=== PATIENT | female | born 1980 | race Caucasian/White ===

== ENCOUNTER 2016-06-14 06:15 | Emergency (ER) | payer OTHER ==
[~2016-06-14] VITALS: Ht 154.9 cm; Wt 85.7 kg
[~2016-06-14 06:15] MED LIST: PHEN-329 PO; SULF1TAB12 PO
[2016-06-14 06:25] VITALS: BP 108/66
--- NOTE | 2016-06-14 06:35 | NUR ---
Mandi larkin in EDM - 06/14/16 at 0715 by CHRISTI ATTEMPTED TO CATH PT WITH UNSUCESSFULL RESULTS, D/T UNABLE TO OBTAIN URINE FROM PT. WILL TRY AGAIN LATER.
--- NOTE | 2016-06-14 06:36 | NUR ---
PT TAKEN TO BED 3
--- NOTE | 2016-06-14 07:05 | NUR ---
Dr. Roberts evaluating patient at bedside.
--- NOTE | 2016-06-14 07:22 | NUR ---
Pt report given to BLANE GALINDO. Transfer of care at this time.PT LAURA, CHERIS.
[2016-06-14 07:39] VITALS: BP 100/68
== END 2016-06-14 07:39 | disposition home or self-care (01) ==
LOC: MED 06:15
DX: N39.0 Urinary tract infection, site not specified (principal); Z32.02 Encounter for pregnancy test, result negative
CPT/HCPCS: 81002; 81025; 99283

== ENCOUNTER 2017-03-23 04:12 | Emergency (ER) | payer OTHER ==
[~2017-03-23] VITALS: Ht 154.9 cm; Wt 84.4 kg
[2017-03-23 04:20] VITALS: BP 120/71
--- NOTE | 2017-03-23 04:25 | NUR ---
RETURNED BACK TO [facility] AMBULATORY ,IN STABLE CONDITION , A/W FOR BED, ERMD NOTED
--- NOTE | 2017-03-23 06:06 | NUR ---
Patient ambulated to bed 10. RN evaluating patient at bedside.
--- NOTE | 2017-03-23 06:15 | NUR ---
PATIENT PRESENTS TO ED WITH C/O PAINFUL URINATION AND ABDOMINAL PAIN X3 DAYS . AAOX4 WITH EVEN AND STEADY GAIT; LUNGS CLEAR BL; HR EVEN AND REGULAR; PT DENIES ANY FEVER, CP, SOB, OR COUGH AT THIS TIME; DENIES N/V/D; SKIN IS PINK/WARM/DRY; PATIENT STATES PAIN OF 8/10 AT THIS TIME; VSS; PATIENT POSITIONED FOR COMFORT; HOB ELEVATED; BEDRAILS UP X2; BED DOWN. ER MD MADE AWARE OF PT STATUS.
[2017-03-23] MEDS: KETOROLAC 60 MG/2 ML VIAL IM ONE (06:45)
[2017-03-23 06:53] VITALS: BP 116/72
--- NOTE | 2017-03-23 06:53 | NUR ---
Patient discharged with v/s stable. Written and verbal after care instructions given and explained. Patient alert, oriented and verbalized understanding of instructions. Ambulatory with steady gait. All questions addressed prior to discharge. ID band removed. Patient advised to follow up with PMD. Rx of CIPRO, PYRIDIUM, MOTRIN given. Patient educated on indication of medication including possible reaction and side effects. Opportunity to ask questions provided and answered.
== END 2017-03-23 06:53 | disposition home or self-care (01) ==
LOC: MED 04:12
DX: N39.0 Urinary tract infection, site not specified (principal); Z88.5 Allergy status to narcotic agent; Z88.8 Allergy status to other drugs, medicaments and biological substances; Z79.899 Other long term (current) drug therapy; Z90.49 Acquired absence of other specified parts of digestive tract
CPT/HCPCS: 81002; 81025; 96372; 99283; J1885

== ENCOUNTER 2017-05-06 03:00 | Emergency (ER) | payer OTHER ==
[~2017-05-06] VITALS: Ht 154.9 cm; Wt 84.1 kg
[2017-05-06 03:09] VITALS: BP 113/83
--- NOTE | 2017-05-06 03:16 | NUR ---
37Y F BIB SELF WITH DAUGHTER C/O SORETHROAT AND BILAT EAR PAIN X 3 DAYS. PT DENIES ANY N/V/D, SOB, CP AT THE MOMENT BUT DID STATES SHE HAS SWALLLOWING DIFFICULTY WITH FOOD BUT NOT WITH FLUIDS. PT AAOX4. BREATHING IS UNLABORED AND EVEN. PT AMBULATED WITH STEADY GAIT TO ER BED 2
--- NOTE | 2017-05-06 03:19 | NUR ---
Patient being evaluated by physician at bedside.
[2017-05-06] MEDS ORDERED: IBUPROFEN 800 MG TAB PO ONE (03:25)
--- NOTE | 2017-05-06 03:39 | NUR ---
STREP SWAB COMPLETED BROUGHT TO LAB GIVEN TO NIR
--- NOTE | 2017-05-06 03:59 | NUR ---
Patient discharged with v/s stable. Written and verbal after care instructions given and explained. Patient alert, oriented and verbalized understanding of instructions. Ambulatory with steady gait. All questions addressed prior to discharge. ID band removed. Patient advised to follow up with PMD. Rx of AMOX 500MG AND PHENERGAN DM given. Patient educated on indication of medication including possible reaction and side effects. Opportunity to ask questions provided and answered.
[2017-05-06 04:00] VITALS: BP 122/79
== END 2017-05-06 04:00 | disposition home or self-care (01) ==
LOC: MED 03:00
DX: J02.8 Acute pharyngitis due to other specified organisms (principal); B96.89 Other specified bacterial agents as the cause of diseases classified elsewhere; Z79.899 Other long term (current) drug therapy; Z88.5 Allergy status to narcotic agent; Z88.8 Allergy status to other drugs, medicaments and biological substances
CPT/HCPCS: 87081; 99283

== ENCOUNTER 2017-05-23 07:30 | Emergency (ER) | payer OTHER ==
[~2017-05-23] VITALS: Ht 154.9 cm; Wt 84.4 kg
[2017-05-23 07:42] VITALS: BP 132/78
--- NOTE | 2017-05-23 07:50 | NUR ---
PT AMBULATES TO BED 11 AFTER PROVIDING URINE SAMPLE
--- NOTE | 2017-05-23 07:53 | NUR ---
37f bib self with c/o 10/10 sharp intermittent bl lower abd/suprapubic pain, increased frequency, dysuria, and chill x 2 wks, progressively getting worse. Pt denies any n/v/d or fevers. Pt is aox4 with steady gait. RR are even and unlabored. Skin warm/pink/dry. No acute distress. Awaiting er md hou. All needs met at this time. Will continue to monitor.
[2017-05-23] MEDS ORDERED: KETOROLAC 60 MG/2 ML VIAL IM ONE (08:00)
--- NOTE | 2017-05-23 08:24 | NUR ---
Patient discharged with v/s stable. Written and verbal after care instructions given and explained. Patient alert, oriented and verbalized understanding of instructions. Ambulatory with steady gait. All questions addressed prior to discharge. ID band removed. Patient advised to follow up with PMD. Rx of Cipro nad Pyridium given. Patient educated on indication of medication including possible reaction and side effects. Opportunity to ask questions provided and answered.
[2017-05-23 08:25] VITALS: BP 128/70
== END 2017-05-23 08:24 | disposition home or self-care (01) ==
LOC: MED 07:30
DX: N39.0 Urinary tract infection, site not specified (principal); R51 Headache; Z90.49 Acquired absence of other specified parts of digestive tract; Z79.899 Other long term (current) drug therapy; Z88.5 Allergy status to narcotic agent; Z88.8 Allergy status to other drugs, medicaments and biological substances
CPT/HCPCS: 81002; 81025; 96372; 99283; J1885

== ENCOUNTER 2018-04-29 07:59 | Emergency (ER) | payer OTHER ==
[~2018-04-29] VITALS: Ht 154.9 cm; Wt 80.7 kg
--- NOTE | 2018-04-29 08:06 | NUR ---
PT AMBULATES TO BED 8
[2018-04-29 08:09] VITALS: BP 142/83
--- NOTE | 2018-04-29 08:15 | NUR ---
C/O HACKING COUGH, NASAL/CHEST CONGESTION, FATIGUE, AND HEADACHE X 1 MONTH FULL CLEAR SPEECH, WITH NO ACCESSORY MUSCLE USE NOTED AT THIS TIME HX--MIGRAINE RX--BOTOX, Amitriptyline, TOPAMAX, GABAPENTIN, Sumatriptan
[2018-04-29 08:40] VITALS: BP 142/83
--- NOTE | 2018-04-29 08:40 | NUR ---
Patient discharged with v/s stable. Written and verbal after care instructions given and explained. Patient alert, oriented and verbalized understanding of instructions. Ambulatory with steady gait. All questions addressed prior to discharge. ID band removed. Patient advised to follow up with PMD. Rx of Naprosyn, Claritin, Tessalon given. Patient educated on indication of medication including possible reaction and side effects. Opportunity to ask questions provided and answered.
== END 2018-04-29 08:40 | disposition home or self-care (01) ==
LOC: MED 07:59
DX: B34.9 Viral infection, unspecified (principal); J32.0 Chronic maxillary sinusitis; R03.0 Elevated blood-pressure reading, without diagnosis of hypertension; G43.909 Migraine, unspecified, not intractable, without status migrainosus; Z88.5 Allergy status to narcotic agent; Z79.899 Other long term (current) drug therapy; Z90.49 Acquired absence of other specified parts of digestive tract; Z88.1 Allergy status to other antibiotic agents
CPT/HCPCS: 99283

== ENCOUNTER 2018-06-15 23:59 | Inpatient (IN) | payer OTHER ==
[~2018-06-15] VITALS: Ht 154.9 cm; Wt 80.7 kg
[2018-06-16 00:19] VITALS: BP 134/79
[2018-06-16 00:39] LABS: HEMATOCRIT 32.5 % (36-48); HEMOGLOBIN 10.4 g/dL (12.0-16.0); MEAN CORPUSCULAR HEMOGLOBIN 24 pg (27-31); MEAN CORPUSCULAR HGB CONC 32 g/dL (33-37); MEAN CORPUSCULAR VOLUME 75.2 fL (80-94); PLATELET COUNT (AUTO) 363 K/uL (140-450); RED BLOOD CELL COUNT(AUTO) 4.32 MIL/uL (4.20-5.40); RED CELL DISTRIBUTION WIDTH 16.9 % (11.6-13.7); WHITE BLOOD COUNT (AUTO) 14.2 K/uL (4.8-10.8)
[2018-06-16 00:53] LABS: ANION GAP 15.9 (8-16); CARBON DIOXIDE 22.6 mmol/L (21-32); CREATININE 1.4 mg/dL (0.6-1.3); LYMPHOCYTES % (MANUAL) 3 % (20-46); POTASSIUM 3.5 mmol/L (3.5-5.1)
[2018-06-16 00:54] LABS: BASOPHILS % (MANUAL) 0 % (0-2); EOSINOPHILS % (MANUAL) 0 % (0-4); MONOCYTES % (MANUAL) 1 % (5-12)
[2018-06-16 00:58] LABS: ALBUMIN 3.8 g/dL (3.4-5.0); TOTAL BILIRUBIN 0.7 mg/dL (0.0-1.0)
--- NOTE | 2018-06-16 01:07 | NUR ---
PT AMBULATED TO BED 8
[2018-06-16] MEDS ORDERED: NACL 0.9% 1,000 ML IV ONE (01:25)
[2018-06-16] MEDS ORDERED: ONDANSETRON 4 MG/2 ML VIAL IVP ONE (01:25)
--- NOTE | 2018-06-16 01:42 | NUR ---
PT TO ED WITH C/O ABD PAIN TO EPIGASTRIC REGION. PT REPORTS N/V. ABD IS SOFT NON TENDER. DENIES PAIN UPON PALPATION. BOWEL SOUNDS PRESENT TO ALL QUADRANTS. PT MEDICATED AT HOME WITH BENTYL WITH NO RELIEF. PT PLACED INTO BED, CHANEL BERKOWITZ. PMH--MIGRAINES, TUBAL LIGATION ALLERGY--CODEINE, NITROFURANTOIN
[2018-06-16] MEDS ORDERED: KETOROLAC 30 MG/ML VIAL IVP ONE (02:00)
--- NOTE | 2018-06-16 02:00 | NUR ---
PT C/O PAIN AT THIS TIME. ER MD ORDAZ AWARE, ORDERS FOR MEDICATION IN EMAR.
[2018-06-16 03:13] LABS: BILIRUBIN,URINE NEGATIVE (NEGATIVE); BLOOD, URINE TRACE-L (NEGATIVE); COLOR,URINE YELLOW (YELLOW); LEUKOCYTE ESTERASE ,URINE 2+ (NEGATIVE); NITRITE, URINE NEGATIVE (NEGATIVE); PH,URINE 6.5 (5.0-9.0); UGLUCOSE NEGATIVE (NEGATIVE)
[2018-06-16 03:18] LABS: APPEARANCE,URINE SLIGHTLY CLOUDY (CLEAR)
[2018-06-16] MEDS ORDERED: cefTRIAXone 1,000 MG VIAL ONE (03:19)
[2018-06-16 03:20] VITALS: BP 106/62
[2018-06-16] MEDS ORDERED: MORPHINE SULFATE 2 MG/ML SYR IVP PRN (03:20)
[2018-06-16] MEDS ORDERED: IMI25 PO (03:20)
[2018-06-16] MEDS ORDERED: ELA50 PO (03:20)
[2018-06-16] MEDS ORDERED: TOPI50TA PO (03:20)
[2018-06-16] MEDS ORDERED: GABA100C PO (03:20)
--- NOTE | 2018-06-16 03:20 | NUR ---
ADMITTED A 38CAME BY BLU DUE TO ABDOMINAL PAIN THAT RADIATES TO THE LT FLANK. MED SURG PT. AWAKE.ALERT AND ORIENTED X4. AMBULATORY. DENIES ANY DISCOMFORT /PAIN AT HIS TIME. WITH IV ACCESS ON THE LT AC G#20. CLEAR AND PATENT. ORIENTED TO HOSPITAL ROUTINES AND TO BED, VISITING HOURS, PLAN OF CARE. PT VERBALIZED UNDERSTANDING. CALL LIGHT PLACED WITHIN EASY REACH. WILL FOLLOW UP ADMIT ORDERS. AND WILL CONTINUE TO MONITOR.
[2018-06-16 03:24] LABS: RBC,URINE 0-5 /HPF (0-5); WBC,URINE 16-25 (MOD) /HPF (0-5)
--- NOTE | 2018-06-16 03:27 | NUR ---
Patient will be admitted to care of DR WILSON. Admited to MED SURG. Will go to room 111-A. Belongings list completed. Report to BLANE ROSALES.
[2018-06-16] MEDS: NACL 0.9% 1,000 ML IV SCH ×2 (04:20→15:02)
--- NOTE | 2018-06-16 06:30 | NUR ---
INSTRUCTED PT THE NEED TO STRAIN ALL HER URINE. CONTAINER WITH STRAINER IN THE BATHROOM. PT VERBALIZED UNDERSTANDING.
--- NOTE | 2018-06-16 07:15 | NUR ---
ENDORSED PT IN STABLE CONDITION TO AM NURSE.
--- NOTE | 2018-06-16 07:16 | NUR ---
RECEIVED REPORT FROM MAGNETIC TAPE TYPEWRITER OPERATOR NURSE STANLEY FOR CONTINUITY OF CARE. PT IN STABLE CONDITION. RESPIRATIONS EVEN AND UNLABORED. IV INTACT AND PATENT. SAFETY MEASURES IN PLACE. BED IN LOW POSITION. CALL LIGHT AT BEDSIDE. WILL CONTINUE TO MONITOR.
[2018-06-16 08:00] VITALS: BP 110/63
--- NOTE | 2018-06-16 08:28 | NUR ---
PATIENT HAS BEEN SCREENED AND CATEGORIZED MODERATE NUTRITION RISK. PATIENT WILL BE SEEN WITHIN 3-5 DAYS OF ADMISSION. 06/18/[address]
[2018-06-16] MEDS ORDERED: SULFAMETH/TRIMETH DS 800/160MG 1 TAB PO SCH (09:00)
[2018-06-16] MEDS: GABAPENTIN 100 MG CAP PO SCH (09:02)
[2018-06-16] MEDS: TOPIRAMATE 25 MG TAB PO SCH ×2 (09:02→20:36)
[2018-06-16] MEDS: PHENAZOPYRIDINE 100 MG TAB PO SCH ×3 (09:02→19:43)
--- NOTE | 2018-06-16 09:13 | NUR ---
GAVE ORDERED DUE MEDICATIONS. PT TOLERATED WELL. WILL CONTINUE TO MONITOR. CALL LIGHT AT BEDSIDE. BED IN LOW POSITION.
[2018-06-16 12:00] VITALS: BP 117/69
--- NOTE | 2018-06-16 12:33 | NUR ---
PT LYING IN BED IN STABLE CONDITION WITH FAMILY MEMBER AT BED SIDE. PT IN STABLE CONDITION. BED IN LOW POSITION. CALL LIGHT AT BEDSIDE. WILL CONTINUE TO MONITOR.
--- NOTE | 2018-06-16 15:10 | NUR ---
PT LYING IN BED TALKING ON PHONE IN STABLE CONDITION. BED IN LOW POSITION. CALL LIGHT AT BEDSIDE. WILL CONTINUE TO MONITOR.
[2018-06-16 16:00] VITALS: BP 111/64
[2018-06-16] MEDS: ACETAMINOPHEN EXTRA STRENGTH 500 MG TAB PO PRN (17:03)
--- NOTE | 2018-06-16 17:45 | NUR ---
PT SITTING IN CHAIR AT BEDSIDE IN STABLE CONDITION TALKING ON THE PHONE. WILL CONTINUE TO MONITOR.
--- NOTE | 2018-06-16 19:20 | NUR ---
GAVE REPORT TO PHONE MANAGER NURSE FOR CONTINUITY OF CARE. PT IN STABLE CONDITION.
--- NOTE | 2018-06-16 19:21 | NUR ---
RECEIVED REPORT FROM DAY SHIFT RN TRA FOR CONTINUITY OF CARE. PT IS A/OX4, ON ROOM AIR. PT ABLE TO MAKE NEEDS KNOWN, AND ABLE TO FOLLOW COMMANDS. PT AMBULATES WITH STEADY GAIT. PT SKIN IS INTACT. PT HAS A 20G IV TO LEFT AC, ASYMPTOMATIC AND INTACT. VITAL SIGNS WITHIN NORMAL LIMITS. PT STABLE, DENIES PAIN, NO SIGNS OF DISTRESS NOTED AT THIS TIME. PT POSITIONED FOR COMFORT. BED IN LOWEST POSITION, BED ALARM ON. WILL CONTINUE TO MONITOR.
--- NOTE | 2018-06-16 20:15 | NUR ---
DR GUZMÁN CAME TO SEE PT, GAVE ME ORDERS TO ORDER KUB FOR PT IN THE MORNING AND ORDER HER A DISC OF THE RESULTS TO BE READY FOR PT UPON D/C TOMORROW AROUND NOON SO THAT SHE COULD TAKE THAT CD TO ON FOLLOW UP APPOINTMENT. WILL PUT IN ORDERS.
--- NOTE | 2018-06-16 20:37 | NUR ---
ADMINISTERED SCHEDULED MEDICATIONS, PT TOLERATED WELL. CALLED BRIDGE CONTRACTOR FOR ELAVIL MEDICATION BECAUSE IT IS NOT AVAILABLE IN [facility]. BRIDGE CONTRACTOR WILL TRY TO FIND IT.
[2018-06-16] MEDS ORDERED: AMITRIPTYLINE 50 MG TAB PO SCH (21:00)
--- NOTE | 2018-06-16 21:23 | NUR ---
PARAPROFESSIONAL AIDE COULD NOT GET AMLODIPINE. TOLD PT MEDICATION WAS NOT AVAILABLE AND PT SAID IT WAS FINE.
[2018-06-17] VITALS: BP 123/55
--- NOTE | 2018-06-17 | NUR ---
VITAL SIGNS WITHIN NORMAL LIMITS. PT STABLE, DENIES PAIN, NO SIGNS OF DISTRESS NOTED AT THIS TIME. PT POSITIONED FOR COMFORT. BED IN LOWEST POSITION, BED ALARM ON. WILL CONTINUE TO MONITOR.
[2018-06-17] MEDS: NACL 0.9% 1,000 ML IV SCH ×2 (00:11→09:19)
[2018-06-17] MEDS: ACETAMINOPHEN EXTRA STRENGTH 500 MG TAB PO PRN (01:15)
--- NOTE | 2018-06-17 02:05 | NUR ---
PT RESTING, RISE AND FALL OF CHEST VISIBLY NOTED, NO SIGNS OF DISTRESS NOTED AT THIS TIME. BED IN LOWEST POSITION, BED ALARM ON. WILL CONTINUE TO MONITOR.
--- NOTE | 2018-06-17 04:35 | NUR ---
PT STABLE, NO SIGNS OF DISTRESS NOTED AT THIS TIME. PT POSITIONED FOR COMFORT. BED IN LOWEST POSITION, BED ALARM ON. WILL CONTINUE TO MONITOR.
[2018-06-17 06:34] LABS: BASOPHILS % (AUTO) 0.4 % (0.0-2.0); EOSINOPHILS # (AUTO) 0.1 K/uL (0-0.4); EOSINOPHILS % (AUTO) 1.6 % (0.0-4.0); HEMATOCRIT 28.9 % (36-48); HEMOGLOBIN 9.4 g/dL (12.0-16.0); LYMPHOCYTES # (AUTO) 1.2 K/uL (2.5-16.5); LYMPHOCYTES % (AUTO) 14.4 % (20.5-51.1); MEAN CORPUSCULAR HEMOGLOBIN 25 pg (27-31); MEAN CORPUSCULAR HGB CONC 33 g/dL (33-37); MEAN CORPUSCULAR VOLUME 75.5 fL (80-94); MONOCYTES # (AUTO) 0.6 K/uL (0.8-1.0); MONOCYTES % (AUTO) 7.2 % (1.7-9.3); NEUTROPHILS # (AUTO) 6.3 K/uL (1.8-7.7); NEUTROPHILS % (AUTO) 76.4 % (42.2-75.2); PLATELET COUNT (AUTO) 298 K/uL (140-450); RED BLOOD CELL COUNT(AUTO) 3.83 MIL/uL (4.20-5.40); RED CELL DISTRIBUTION WIDTH 17.1 % (11.6-13.7); WHITE BLOOD COUNT (AUTO) 8.3 K/uL (4.8-10.8)
[2018-06-17 06:50] LABS: ALBUMIN 2.9 g/dL (3.4-5.0); ANION GAP 14.7 (8-16); CARBON DIOXIDE 20.9 mmol/L (21-32); CREATININE 0.8 mg/dL (0.6-1.3); POTASSIUM 3.6 mmol/L (3.5-5.1); TOTAL BILIRUBIN 0.3 mg/dL (0.0-1.0)
[2018-06-17] MEDS ORDERED: SODIUM PHOS / POTASSIUM PHOS 1 PKT PDR ONE (06:50)
--- NOTE | 2018-06-17 07:37 | NUR ---
ENDORSED PT TO DAY SHIFT BLANE DUTTA FOR CONTINUITY OF CARE. PT IN STABLE CONDITION.
--- NOTE | 2018-06-17 07:38 | NUR ---
RECEIVED REPORT FROM CRYPTOGRAPHIC VULNERABILITY ANALYST NURSE FOR CONTINUITY OF CARE. PT IN STABLE CONDITION. RESPIRATIONS EVEN AND UNLABORED. IV INTACT AND PATENT. SAFETY MEASURES IN PLACE. CALL LIGHT AT BEDSIDE. BED IN LOW POSITION. WILL CONTINUE TO MONITOR.
[2018-06-17 08:00] VITALS: BP 119/66
[2018-06-17] MEDS ORDERED: HYDR-5122 PO (09:00)
[2018-06-17] MEDS ORDERED: SULF1TAB12 PO (09:00)
[2018-06-17] MEDS: TOPIRAMATE 25 MG TAB PO SCH (09:00)
[2018-06-17] MEDS ORDERED: ACET-2166 PO (09:02)
--- NOTE | 2018-06-17 09:10 | NUR ---
GAVE ORDERED DUE MEDICATIONS AT THIS TIME. PT IN STABLE CONDITION. WILL CONTINUE TO MONITOR
[2018-06-17] MEDS: GABAPENTIN 100 MG CAP PO SCH (09:17)
[2018-06-17] MEDS: PHENAZOPYRIDINE 100 MG TAB PO SCH (09:17)
--- NOTE | 2018-06-17 11:02 | NUR ---
GAVE ORDERED DUE MEDICATIONS AT THIS TIME. PT IN STABLE CONDITION. WILL CONTINUE TO MONITOR.
--- NOTE | 2018-06-17 11:45 | NUR ---
GAVE DISCHARGE INSTRUCTIONS AND PRESCRIPTIONS TO TAKE TO HOME PHARMACY, PT VERBALIZED UNDERSTANDING OF INSTRUCTIONS. IV REMOVED, LUMEN INTACT. ID BAND REMOVED. PT WHEELED TO LOBBY WHERE RESPONSIBLE ADULT WAS WAITING WITH VEHICLE. PT IN STABLE CONDITION.
--- NOTE | 2018-06-18 10:40 | NUR ---
CALLED DR. MAGGIE ARMSTRONG AND MADE A FOLLOW UP APPOINTMENT FOR THE PATIENT ON 06/23/18 AT 11:30A.M. ADDRESS, [address] [place] [address] [place] PHONE [phone]. I CALLED THE PATIENT, CHRISTO AND INFORMED HER OF THE APPOINTMENT.
== END 2018-06-17 11:45 | disposition home or self-care (01) | DRG 465 ==
LOC: MED 23:59 → MTU 06-16 02:59
PROVIDERS: ADMIT Internal Medicine; ATTEND Internal Medicine
DX: N13.2 Hydronephrosis with renal and ureteral calculous obstruction (principal); N17.0 Acute kidney failure with tubular necrosis; E66.9 Obesity, unspecified; M79.7 Fibromyalgia; K58.9 Irritable bowel syndrome, unspecified; Z68.33 Body mass index [BMI] 33.0-33.9, adult; Z88.5 Allergy status to narcotic agent; Z88.8 Allergy status to other drugs, medicaments and biological substances; Z79.899 Other long term (current) drug therapy; Z98.51 Tubal ligation status
CPT/HCPCS: 36415; 74018; 80053; 81001; 81025; 83690; 85025; 87040; 87081; 87086; 87186; 96361; 96374; 96375; 99285; J0696; J1885; J2405; J7030; J7060; Q0092

== ENCOUNTER 2018-07-10 03:45 | Emergency (ER) | payer OTHER ==
[~2018-07-10] VITALS: Ht 154.9 cm; Wt 80.7 kg
[~2018-07-10 03:45] MED LIST changes: +ACET-2166 PO; +ELA50 PO; +GABA100C PO; +HYDR-5122 PO; +IMI25 PO; -PHEN-329 PO; +TOPI50TA PO
[2018-07-10 03:50] VITALS: BP 142/98
--- NOTE | 2018-07-10 03:50 | NUR ---
TO BED # 11 AMBULATORY
--- NOTE | 2018-07-10 03:50 | NUR ---
PT PRESENTS TO ED WITH LEFT SIDE SUPRAPUBIC ABD PAIN RADIATING UP THROUGH LLQ POST LITHOTRYPSY DONE ON 07/09/18 AT 07:45. PT STATES SEVERE 10/10, CONSTANT PAIN. WAS NOT GIVEN RX FRO PAIN MANAGEMENT POST PROCEDURE FROM [facility]. INSTRUCTED TO TAKE OTC IBUPROFEN AND IBUPROFEN INNEFECTIVE FOR PAIN. POSITIONED IN BED FOR COMFORT. ER MD AWARE. CONTINUE TO MONITOR.
[2018-07-10] MEDS ORDERED: HYDROcodone/APAP 5/325 MG 1 TAB TAB PO ONE (04:10)
[2018-07-10 04:30] VITALS: BP 133/82
--- NOTE | 2018-07-10 04:30 | NUR ---
DISCHARGE PAPERWORK GIVEN TO PT. PAIN DECREASED TO 6/10. GIVEN RX FOR NORCO. SIDE EFFECTS EXPLAINED. INSTRUCTED TO F/U WITH PCP AND WHEN TO RETURN TO ER. ALSO INSTRUCTED TO F/U WITH UROLOGYST FOR FURTHER PAIN MANAGEMENT PER DR MOYA. PT VERBALIZED UNDERSTANDING OF DC INSTRUCTIONS. ALL QUESTIONS ANSWERED.
== END 2018-07-10 04:30 | disposition home or self-care (01) ==
LOC: MED 03:45
DX: T83.84XA Pain due to genitourinary prosthetic devices, implants and grafts, initial encounter (principal); Z87.442 Personal history of urinary calculi; Z79.891 Long term (current) use of opiate analgesic; Z79.2 Long term (current) use of antibiotics; Z79.1 Long term (current) use of non-steroidal anti-inflammatories (NSAID); Z79.899 Other long term (current) drug therapy; Z88.5 Allergy status to narcotic agent; Z88.8 Allergy status to other drugs, medicaments and biological substances
CPT/HCPCS: 99282

== ENCOUNTER 2018-12-17 11:03 | Emergency (ER) | payer OTHER ==
[~2018-12-17] VITALS: Ht 154.9 cm; Wt 62.6 kg
[2018-12-17 11:10] VITALS: BP 138/89
[2018-12-17 13:29] VITALS: BP 125/81
== END 2018-12-17 13:29 | disposition home or self-care (01) ==
LOC: MED 11:03
DX: S93.402A Sprain of unspecified ligament of left ankle, initial encounter (principal); G43.909 Migraine, unspecified, not intractable, without status migrainosus; Z79.891 Long term (current) use of opiate analgesic; Z79.899 Other long term (current) drug therapy; Z88.5 Allergy status to narcotic agent; Z88.1 Allergy status to other antibiotic agents; W17.89XA Other fall from one level to another, initial encounter; Y93.89 Activity, other specified; Y92.098 Other place in other non-institutional residence as the place of occurrence of the external cause; Y99.8 Other external cause status
CPT/HCPCS: 73610; 99283; Q0092

== ENCOUNTER 2019-01-24 18:23 | Emergency (ER) | payer OTHER ==
[~2019-01-24] VITALS: Ht 154.9 cm; Wt 88.5 kg
[2019-01-24 18:34] VITALS: BP 137/89
--- NOTE | 2019-01-24 19:18 | NUR ---
pt ambulated to bed 12
[2019-01-24] MEDS ORDERED: NACL 0.9% 1,000 ML IV ONE (19:25)
--- NOTE | 2019-01-24 19:38 | NUR ---
38 Y/O F PRESENTS TO ER C/O DIARRHEA AND EPIGASTRIC PAIN SINCE SATURDAY MORNING. DENIES N/V. PT C/O FEVER/CHILLS AND BILATERAL EAR PAIN. PT HAS BEEN ALTERNATING BETWEEN TYLENOL AND MOTRIN. PT CURRENTLY AFEBRILE. DENIES BURNING UPON URINATION. ALLERGIES: MACROBID AND CODEINE. MED HX: MIGRAINES, KIDNEY STONES. SURGICAL HX: TUBAL LIGATION AND GALLBLADDER REMOVAL. HOB ELEVATED, BED IN LOWEST POSITION, SIDE RAIL UP X1. ERMD AT PT BEDSIDE.
[2019-01-24] MEDS ORDERED: KETOROLAC 30 MG/ML VIAL IVP ONE (19:40)
--- NOTE | 2019-01-24 20:43 | NUR ---
PT STATES PAIN RELIEF. PAIN LEVEL 0/10.
[2019-01-24 21:35] VITALS: BP 121/84
--- NOTE | 2019-01-24 21:35 | NUR ---
Patient discharged with v/s stable. Written and verbal after care instructions given and explained. Pt encouraged to try BRAT diet, bananas, rice, applesauce, and toast. Patient alert, oriented and verbalized understanding of instructions. Ambulatory with steady gait. All questions addressed prior to discharge. ID band removed. Patient advised to follow up with PMD. Rx of MOTRIN 800MG, IMODIUM A-D 2MG, CIPRO 500MG WAS given. Patient educated on indication of medication including possible reaction and side effects. Opportunity to ask questions provided and answered.
== END 2019-01-24 21:35 | disposition home or self-care (01) ==
LOC: MED 18:23
DX: N39.0 Urinary tract infection, site not specified (principal); R19.7 Diarrhea, unspecified
CPT/HCPCS: 81002; 81025; 96361; 96374; 99283; J1885; J7030

== ENCOUNTER 2019-07-20 03:02 | Emergency (ER) | payer OTHER ==
[~2019-07-20] VITALS: Ht 154.9 cm; Wt 78.9 kg
[2019-07-20 03:09] VITALS: BP 119/64
--- NOTE | 2019-07-20 03:15 | NUR ---
PT TAKEN TO BED 4
--- NOTE | 2019-07-20 03:15 | NUR ---
39 Y/O FEMALE PRESENTS TO THE ER WITH LEFT LEG PAIN X 1 WEEK. 10/10 SHARP CONSTANT PAIN, WITH NUMBNESS, AND TINGLING, TENDER TO PALPATION, PAINFUL TO BARE WEIGHT. DENIES INJURY, OR BACK PAIN, OR ANY TYPE OF KNOWN NERVE DAMAGE, OR CLOTTING DISORDERS. DENIES REDNESS, OR INFLAMMATION. LMP 07/03/19 DENIES SOB, R/R EQUAL AND UNLABORED. SIDE RAIL X1, WILL CONTINUE TO MONITOR. ALLERGIES: MACROBID; CODEINE PMHX: MIGRAINES
--- NOTE | 2019-07-20 03:35 | NUR ---
Dr. Contreras examining patient.
[2019-07-20] MEDS ORDERED: KETOROLAC 60 MG/2 ML VIAL IM ONE (03:40)
[2019-07-20] MEDS ORDERED: METHOCARBAMOL 500 MG TAB PO ONE (03:40)
[2019-07-20 04:20] VITALS: BP 119/64
--- NOTE | 2019-07-20 04:21 | NUR ---
Patient discharged with v/s stable. Written and verbal after care instructions given and explained. Patient alert, oriented and verbalized understanding of instructions. Wheel Chair Assisted to car. All questions addressed prior to discharge. ID band removed. Patient advised to follow up with PMD. Rx of TRAMADOL, MOTRIN, ROBAXIN given. Patient educated on indication of medication including possible reaction and side effects. Opportunity to ask questions provided and answered.
== END 2019-07-20 04:21 | disposition home or self-care (01) ==
LOC: MED 03:02
DX: S86.912A Strain of unspecified muscle(s) and tendon(s) at lower leg level, left leg, initial encounter (principal); Z79.899 Other long term (current) drug therapy; Z88.5 Allergy status to narcotic agent; Z88.1 Allergy status to other antibiotic agents; X58.XXXA Exposure to other specified factors, initial encounter; Y93.89 Activity, other specified; Y92.89 Other specified places as the place of occurrence of the external cause; Y99.0 Civilian activity done for income or pay
CPT/HCPCS: 96372; 99283; J1885

== ENCOUNTER 2019-09-27 08:27 | Emergency (ER) | payer OTHER, SELFPAY ==
[~2019-09-27] VITALS: Ht 154.9 cm; Wt 81.6 kg
[2019-09-27 08:48] VITALS: BP 125/67
--- NOTE | 2019-09-27 08:53 | NUR ---
COVID SWAB DONE.
--- NOTE | 2019-09-27 08:56 | NUR ---
C/O FEVER, COUGH, HEADACHE, BODY ACHE, CHEST PAIN, DIZZINESS X 3 DAYS. T 100.7 AT 7 AM TODAY. TEMP 98.4, P 110, R 20, O2 SAT 100%, BP 125/67 AT THIS TIME. MED HX: MIGRAINE
--- NOTE | 2019-09-27 08:58 | NUR ---
Patient being evaluated byDR SOLIS at tent
[2019-09-27 09:05] VITALS: BP 125/67
--- NOTE | 2019-09-28 18:03 | NUR ---
POSITIVE COVID RESULT RECEIVED, COPY GAVE TO PIN SORTER AND BAGGER
== END 2019-09-27 09:05 | disposition home or self-care (01) ==
LOC: MED 08:27 → EEVIPCON 08:27 → MED 09:05
DX: R50.9 Fever, unspecified (principal); Z20.828 Contact with and (suspected) exposure to other viral communicable diseases; M79.10 Myalgia, unspecified site; Z90.49 Acquired absence of other specified parts of digestive tract; Z79.899 Other long term (current) drug therapy; Z88.5 Allergy status to narcotic agent; Z88.1 Allergy status to other antibiotic agents
CPT/HCPCS: 99283; U0003

== ENCOUNTER 2020-08-15 06:00 | Emergency (ER) | payer OTHER, SELFPAY ==
[~2020-08-15] VITALS: Ht 162.6 cm; Wt 85.7 kg
[~2020-08-15 06:00] MED LIST changes: +SULF-979 PO; -SULF1TAB12 PO
[2020-08-15 06:05] VITALS: BP 128/61
--- NOTE | 2020-08-15 06:05 | NUR ---
Dr. Dutta examining patient.
--- NOTE | 2020-08-15 06:07 | NUR ---
To ED bed 04.
[2020-08-15] MEDS ORDERED: methylPREDNISolone SS 125 MG/2 ML VIAL IM ONE (06:10)
[2020-08-15] MEDS ORDERED: diphenhydrAMINE 50 MG/ML VIAL IM ONE (06:10)
[2020-08-15] MEDS ORDERED: FAMOTIDINE 20 MG TAB PO ONE (06:10)
--- NOTE | 2020-08-15 06:10 | NUR ---
PATIENT BIB SELF FOR C/O RASH SINCE YESTERDAY AFTER EATING A "NEW CUPCAKE." A & O X4. SMALL PIN POINT RED RASH NOTED TO BILATERAL ARMS, CHEST, FACE. PATIENT DENIES SOB, CP, FEVER, CHILLS, N/V/D. PATIENT DENIES PAIN, AND REPORTS ITCHINESS. PATIENT REPORTS TAKING BENADRYL 25 MG AT HOME WITH MINIMAL RELIEF. SEE COMPLETE ASSESSMENT. MED HX: MIGRAINES ALLERGIES: SEE LISTED.
[2020-08-15] MEDS ORDERED: FAMO20TA13 PO (06:14)
[2020-08-15] MEDS ORDERED: EPIN1KIT31 IM (06:14)
[2020-08-15] MEDS ORDERED: PRED20TA5 PO (06:14)
[2020-08-15] MEDS ORDERED: DIPH25TA53 PO (06:14)
[2020-08-15 06:37] VITALS: BP 128/61
--- NOTE | 2020-08-15 06:37 | NUR ---
Patient discharged with v/s stable. Written and verbal after care instructions given and explained. Patient alert, oriented and verbalized understanding of instructions. Ambulatory with steady gait. All questions addressed prior to discharge. ID band removed. Patient advised to follow up with PMD. Rx of BENADRYL, EPIPEN, FAMOTIDINE, PREDNISONE given. Patient educated on indication of medication including possible reaction and side effects. Opportunity to ask questions provided and answered.
== END 2020-08-15 06:37 | disposition home or self-care (01) ==
LOC: MED 06:00
DX: T78.40XA Allergy, unspecified, initial encounter (principal); Z88.5 Allergy status to narcotic agent; Z88.8 Allergy status to other drugs, medicaments and biological substances; Z79.899 Other long term (current) drug therapy; X58.XXXA Exposure to other specified factors, initial encounter
CPT/HCPCS: 96372; 99284; J1200; J2930

== ENCOUNTER 2021-02-21 02:00 | Emergency (ER) | payer OTHER ==
[~2021-02-21] VITALS: Ht 154.9 cm; Wt 91.6 kg
[~2021-02-21 02:00] MED LIST changes: +DIPH25TA53 PO; +EPIN1KIT31 IM; +FAMO20TA13 PO; +PRED20TA5 PO; +SULF-954 PO; -SULF-979 PO
[2021-02-21 02:18] VITALS: BP 108/79
--- NOTE | 2021-02-21 02:25 | NUR ---
PATIENT TO BED 02 AMBULATORY
--- NOTE | 2021-02-21 02:34 | NUR ---
ERMD AT BEDSIDE FOR EXAMINATION OF PATIENT
[2021-02-21] MEDS ORDERED: IBUPROFEN 800 MG TAB PO ONE (02:45)
[2021-02-21] MEDS ORDERED: IBUP-2218 PO (03:28)
--- NOTE | 2021-02-21 03:45 | NUR ---
Patient discharged with v/s stable. Written and verbal after care instructions given and explained. Patient alert, oriented and verbalized understanding of instructions. Ambulatory with steady gait on crutches. All questions addressed prior to discharge. ID band removed. Patient advised to follow up with PMD. Rx of ibuprofen given. Patient educated on indication of medication including possible reaction and side effects. Opportunity to ask questions provided and answered.
--- NOTE | 2021-02-21 03:45 | NUR ---
ERMD aware of patient pain. pain 7/10 only when patient hyper extends ankle but without movement patient has pain of 4/10
[2021-02-21 03:46] VITALS: BP 135/77
--- NOTE | 2021-02-21 03:47 | NUR ---
The patient's care was reviewed and supervised by Laurie Goldberg RN, RN.
== END 2021-02-21 03:45 | disposition home or self-care (01) ==
LOC: MED 02:00
DX: S90.02XA Contusion of left ankle, initial encounter (principal); Z88.5 Allergy status to narcotic agent; Z88.8 Allergy status to other drugs, medicaments and biological substances; Z79.899 Other long term (current) drug therapy; W22.8XXA Striking against or struck by other objects, initial encounter; Y93.89 Activity, other specified; Y92.89 Other specified places as the place of occurrence of the external cause; Y99.8 Other external cause status
CPT/HCPCS: 29125; 73610; 99283; Q0092

== ENCOUNTER 2022-11-20 13:19 | Emergency (ER) | payer OTHER ==
[~2022-11-20] VITALS: Ht 154.9 cm; Wt 90.5 kg
[~2022-11-20 13:19] MED LIST changes: +IBUP-2218 PO
[2022-11-20 13:33] VITALS: BP 135/81; PULSE 82; RESP 20; TEMP 97.2; O2SAT 100
[2022-11-20] MEDS ORDERED: KETOROLAC 30 MG/ML VIAL IM ONE (14:40)
[2022-11-20] MEDS ORDERED: LID5T TP (14:48)
[2022-11-20] MEDS ORDERED: CYCL-711 PO (14:48)
[2022-11-20] MEDS ORDERED: NAPR-54 PO (14:48)
[2022-11-20 15:43] LABS: APPEARANCE,URINE CLEAR (CLEAR); BILIRUBIN,URINE NEGATIVE (NEGATIVE); BLOOD, URINE 3+ (NEGATIVE); COLOR,URINE YELLOW (YELLOW); LEUKOCYTE ESTERASE ,URINE TRACE (NEGATIVE); NITRITE, URINE NEGATIVE (NEGATIVE); PROTEIN,URINE NEGATIVE (NEGATIVE); UGLUCOSE NEGATIVE (NEGATIVE); UROBILINOGEN,URINE 0.2 EU/dL (0.2 - 1)
[2022-11-20 15:49] LABS: RBC,URINE 11-20 (MOD) /HPF (0-5); WBC,URINE 0-5 /HPF (0-5)
[2022-11-20 15:50] VITALS: BP 134/78; PULSE 79; RESP 18; TEMP 97.4; O2SAT 100
[2022-11-20 15:50] LABS: BACTERIA,URINE FEW /HPF (None Seen); SQUAMOUS EPITHELIAL CELL,UR 4-10 (MOD) /LPF (0-3 (FEW))
== END 2022-11-20 15:50 | disposition home or self-care (01) ==
LOC: MED 13:19
DX: M54.16 Radiculopathy, lumbar region (principal); Z88.5 Allergy status to narcotic agent; Z88.8 Allergy status to other drugs, medicaments and biological substances; Z79.899 Other long term (current) drug therapy
CPT/HCPCS: 81001; 81025; 96372; 99283; J1885